=== PATIENT | female | born 1940 | race Caucasian/White ===

== ENCOUNTER → 2017-08-24 | Outpatient (REF) | payer MEDICARE, OTHER ==
[2017-08-24 14:45] LABS: REASON FOR REVIEW COMPREHENSIVE REVIEW
== END ==
LOC: M LAB REF 14:13
PROVIDERS: ATTEND Internal Medicine Medical Oncology
DX: D46.9 Myelodysplastic syndrome, unspecified (principal)

== ENCOUNTER → 2020-03-04 | Outpatient (CLI) | payer MEDICARE ==
[~2020-03-04] MED LIST: ALEN70TA74 PO; ASPI81TA85 PO; BUSP10TA PO; HYDR500C3 PO; LABE10TAB PO; TRIA37.5 PO
--- NOTE | 2020-03-05 10:16 | REP ---
PET/CT: HISTORY: Lung nodule. Nonspecific abnormal finding of the lung field. COMPARISONS: Comparison CT study chest abdomen pelvis January 29, 2020. TECHNIQUE: 50 minutes following the intravenous injection of a 8.92 mCi dose of F-18 FDG, three-dimensional PET scintigraphy is acquired from the skull base to the proximal thighs. Triplanar noncontrast CT scanning is acquired through the same anatomic range for attenuation correction, and image registration with scan parameters optimized to minimize radiation exposure to the patient. PET scintigraphy and CT datasets were fused and displayed on a workstation with multiplanar and projection display capability. PET/CT FINDINGS: The 1.4 cm nodule in the right upper lobe is quite hypermetabolic, maximum standard uptake value 9.48. No other abnormal hypermetabolic uptake is seen in the right lung. No abnormal pleural uptake is appreciated associated with the right pleural effusion. The spiculated left upper lobe nodule which measures 2.0 cm, has borderline of avidity. Maximum standard uptake value is 2.40. This has suspicious morphology as well. No other abnormal hypermetabolic uptake is seen in the left chest. There is another nodule visible in the left upper lobe more inferiorly measuring 13 mm in greatest diameter. This is less than completely solid morphologically. Maximum standard uptake value here is 0.90. This is not hypermetabolic. There is an area of atelectasis in the right middle lobe region without suspicious uptake. No abnormal hypermetabolic uptake is seen in the abdomen and pelvis. IMPRESSION: Hypermetabolic uptake is noted in a suspicious nodule in the right upper lobe. Two nodules in the left upper lobe show borderline and non-hypermetabolic uptake respectively. No other abnormal hypermetabolic uptake is seen. Electronically Signed by Juventino Elliott MD 03/05/2020 05:11 P
== END ==
LOC: M PLARAD 13:27
PROVIDERS: ATTEND Internal Medicine Pulmonary Disease
DX: R91.1 Solitary pulmonary nodule (principal)
CPT/HCPCS: 78815; A9552

== ENCOUNTER → 2020-03-11 | Outpatient (CLI) | payer MEDICARE ==
[2020-03-11 10:43] VITALS: BP 176/74
--- NOTE | 2020-03-11 14:41 | REP ---
REASON: Asses pleural fluid for possible evacuation. Ultrasonic evaluation of the right pleural space shows no abnormal fluid. Electronically Signed by Jonnathan Palumbo DO 03/11/2020 05:27 P
== END ==
LOC: M IRPRO 10:25
PROVIDERS: ATTEND Internal Medicine Pulmonary Disease
DX: J90 Pleural effusion, not elsewhere classified (principal)

== ENCOUNTER → 2020-04-17 | Outpatient (CLI) | payer MEDICARE ==
[~2020-04-17] MED LIST changes: +ALBU8.5H; -ASPI81TA85 PO; +ASPI81TA86 PO
--- NOTE | 2020-06-06 11:14 | REP ---
CT CHEST WITHOUT CONTRAST HISTORY: Other nonspecific abnormal finding of lung field. This report was delayed due to a protracted network disruption experienced by this facility. COMPARISON: PET CT images are from 03/04/2020. [facility] chest CT images from 01/29/2020. CT FINDINGS: There is a small right pleural effusion and a small pericardial effusion in this patient with cardiomegaly. These findings are unchanged from 01/29/2020. Extensive vascular calcification is noted. There is no apparent mediastinal mass or adenopathy. There is lobar atelectasis nearly complete in the right middle lobe. This is more pronounced than on the prior study. There are some air bronchograms, but no endobronchial lesion is seen. There is a 2.9 cm spiculated lesion in the left upper lobe, which is larger than on the prior study. There is a 1.4 cm somewhat spiculated noncalcified pulmonary nodule in the right upper lobe, which is unchanged from the 01/29/2020 CT study. There is a predominantly solid spiculated lesion in the posterior aspect of the left upper lobe. This measures 1.4 cm in greatest diameter. It is felt to be unchanged from the most recent prior CT study of 01/29/2020 as well. There is a small 5 mm pulmonary nodule in the left lower lobe posteriorly unchanged. Emphysematous changes and bullae are noted in the upper lobes bilaterally. No bony destructive lesion is appreciated. No adrenal lesion is observed. IMPRESSION: Spiculated nodules bilaterally in the upper lobes. There is a left lower lobe spiculated nodule as well. Small right pleural effusion and pericardial effusions are again noted. MTDD
== END ==
LOC: M RAD 11:47
PROVIDERS: ATTEND Internal Medicine Pulmonary Disease
DX: R91.8 Other nonspecific abnormal finding of lung field (principal)

== ENCOUNTER → 2020-04-28 | Outpatient (REF) | payer MEDICARE ==
[2020-05-28 14:16] LABS: BASO % 0.3 % (0.0-1.0); EOS # 0.1 10^3/uL (0.0-0.5); EOS % 0.8 % (0.0-3.0); HEMATOCRIT 46.4 % (36.0-47.0); HEMOGLOBIN 15.3 g/dl (12.0-15.5); INR 1.07; LYMPH # 0.6 10^3/uL (1.5-5.0); LYMPH % 7.3 % (24.0-44.0); MEAN CORPUSCULAR HEMOGLOBIN 36.3 pg (27.0-33.0); MEAN CORPUSCULAR VOLUME 110.2 fl (80.0-96.0); MONO # 0.6 10^3/uL (0.0-0.8); MONO % 7.2 % (0.0-5.0); NEUTROPHILS # 6.5 10^3/uL (1.5-8.5); NEUTROPHILS % 83.3 % (36.0-66.0); PLATELET COUNT, AUTOMATED 480 10^3/uL (150-450); PROTHROMBIN TIME 14.2 SECONDS (11.8-14.0); RED BLOOD COUNT 4.21 10^6/uL (4.00-5.40); WHITE BLOOD COUNT 7.8 10^3/uL (4.0-10.0)
[2020-05-28 14:17] LABS: PARTIAL THROMBOPLASTIN TIME 42.3 SECONDS (25.0-38.4)
[2020-06-10 11:21] LABS: BLOOD UREA NITROGEN 24 MG/DL (7-18); CALCIUM LEVEL 9.4 MG/DL (8.8-10.2); CARBON DIOXIDE LEVEL 31 MEQ/L (21-32); CHLORIDE LEVEL 105 MEQ/L (98-107); GLOMERULAR FILTRATION RATE > 60.0 (>32); GLUCOSE, FASTING 107 MG/DL (70-100); POTASSIUM SERUM 5.2 MEQ/L (3.5-5.1); SODIUM LEVEL 143 MEQ/L (136-145)
== END ==
LOC: M LAB REF 07:44
PROVIDERS: ATTEND Internal Medicine Pulmonary Disease
DX: J90 Pleural effusion, not elsewhere classified (principal); R79.1 Abnormal coagulation profile

== ENCOUNTER → 2020-04-28 | Outpatient (CLI) | payer MEDICARE | LOC: M LABSMTC 09:40 | PROVIDERS: ATTEND Anesthesiology | DX: Z01.812 Encounter for preprocedural laboratory examination (principal); Z20.828 Contact with and (suspected) exposure to other viral communicable diseases | CPT/HCPCS: C9803; U0002 ==

== ENCOUNTER → 2020-05-13 | Outpatient (CLI) | payer MEDICARE | LOC: M ONCR 14:21 | PROVIDERS: ATTEND General Practice | DX: C34.12 Malignant neoplasm of upper lobe, left bronchus or lung (principal); C34.11 Malignant neoplasm of upper lobe, right bronchus or lung; J44.9 Chronic obstructive pulmonary disease, unspecified; D47.3 Essential (hemorrhagic) thrombocythemia; J90 Pleural effusion, not elsewhere classified; F41.9 Anxiety disorder, unspecified; K21.9 Gastro-esophageal reflux disease without esophagitis; Z87.891 Personal history of nicotine dependence; Z79.51 Long term (current) use of inhaled steroids; Z79.82 Long term (current) use of aspirin; Z79.899 Other long term (current) drug therapy | CPT/HCPCS: 88173; G0463 ==

== ENCOUNTER 2020-07-10 13:47 | Outpatient (RCR) | payer MEDICARE | END 2020-07-19 | LOC: M ONCR 13:47 | PROVIDERS: ATTEND General Practice | DX: C34.12 Malignant neoplasm of upper lobe, left bronchus or lung (principal); C34.11 Malignant neoplasm of upper lobe, right bronchus or lung ==

== ENCOUNTER 2020-08-01 12:53 | Outpatient (RCR) | payer MEDICARE | END 2020-08-18 | LOC: M ONCR 12:53 | PROVIDERS: ATTEND General Practice | DX: C34.12 Malignant neoplasm of upper lobe, left bronchus or lung (principal) ==

== ENCOUNTER → 2020-10-20 | Outpatient (CLI) | payer MEDICARE, OTHER ==
[~2020-10-20] MED LIST changes: -ALEN70TA74 PO; +ALEN70TA82 PO; +ASPI81TA26 PO; +ATIV1TAB10 PO; +ISOVUE-370 76% 100ML VIAL As Ordered ONE; +LABE100T4 PO; -LABE10TAB PO; +SERT25TA85 PO; +TAGR80TA PO; +TOPR50TA PO
--- NOTE | 2020-10-20 13:33 | REP ---
INDICATION: LUNG CA. COMPARISON: 04/17/2020. TECHNIQUE: CT chest performed following the intravenous administration of 100 cc of Isovue 370. Sagittal and coronal reconstruction images are performed. FINDINGS: Lungs: Once again there are diffuse moderate emphysematous and fibrotic changes bilaterally. Superiorly in the right upper lobe there is an oval nodule with somewhat ill-defined margins which has decreased in size compared to the prior study, currently measuring about 9 x 7 mm, previously 14 x 10 mm. The previously noted right middle lobe consolidation has almost completely resolved. In the inferior right middle lobe there is a 4 mm nodular density. Posteriorly and inferiorly in the right lower lobe there are patchy parenchymal opacities peripherally likely representing fibro atelectasis. Superiorly in the left upper lobe a spiculated mass has slightly increased in size. It is slightly more bulky, increasing in transverse dimension by about 5 mm and cranial caudally about 3 mm. There are also increased interstitial opacities extending posterior to it. More inferiorly in the posterior left upper lobe an oval ill-defined spiculated lesion has a maximum diameter of 1.4 cm unchanged. Posterior the left lower lobe a 5 mm oval nodular opacity is stable. No new nodules are seen. Mediastinum: No adenopathy. Janet: No adenopathy. Axilla: No adenopathy. Pleura: No effusion. Previously noted right pleural effusion has resolved. Heart: Mildly enlarged. Thoracic aorta: No aneurysm or dissection. Upper abdominal structures: The thickened left adrenal gland is unchanged. The patient has had a prior cholecystectomy. There are colonic diverticula noted. There is renal cortical atrophy. Visualized osseous structures: There are degenerative changes of the spine without compression deformity. IMPRESSION: The previously noted right upper lobe nodule has decreased in size. Right middle lobe consolidation has almost completely resolved. There is a 4 mm nodular density seen in the right middle lobe. The right pleural effusion has resolved. The spiculated mass in the left upper lobe has slightly increased in size since the prior study. Another ill-defined spiculated lesion in the left upper lobe remains stable. A 5 mm nodular density in the left lower lobe remains stable. <Electronically signed by Scottie Diehl > 10/20/20 [id number]
== END ==
LOC: M RAD 11:01
PROVIDERS: ATTEND General Practice
DX: C34.12 Malignant neoplasm of upper lobe, left bronchus or lung (principal)
CPT/HCPCS: 71260; Q9967

== ENCOUNTER → 2020-10-29 | Outpatient (CLI) | payer MEDICARE, OTHER ==
[~2020-10-29] MED LIST changes: -ISOVUE-370 76% 100ML VIAL As Ordered ONE
--- NOTE | 2020-10-29 17:17 | RADONC ---
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 She completed SBRT to the biopsy proven RUL and CHRISTOPH lesions 08/01/20. She has been continued on Tagrisso with Dr. Galvan in the adjuvant setting. Diagnosis/Treatment History Oncologic History History of COPD, essential thrombocytosis. January 2020 She underwent workup for a right pleural effusion which was sampled but subsequently spontaneously resolved. On CT chest RUL and CHRISTOPH spiculated lung lesions were discovered. She underwent PET-CT 03/04/20 which showed avidity in these nodules in the absence of distant disease. She was referred for bronchoscopy and biopsy on 04/30/20 (Dr. Waller) revealed NSCLC. She was then referred for consideration of SBRT to these lesions. Her treatment was delayed, as she suffered an FL in May 2020, this led to a 1 month hospitalization in [place] wherein a recurrent right pleural effusion was noted and sampled this time harboring malignant cells. She was discharged and on planning CT for SBRT on 07/10/20 the effusion was again noted to have spontaneously resolved without treatment. She completed SBRT 60 Gy in 5 fractions to both the RUL and CHRISTOPH simultaneously on 08/01/20. She started Tagrisso August 2020 in the adjuvant setting on the basis of the positive pleural cytology harboring EGFR mutation (despite the spontaneous resolution of the effusion in question) but had to discontinue it due to refractory diarrhea. She may resume again soon with dose reduction. Recent data: 10/20/20 CT chest Reduction in size of the RUL lesion now 1.0 x 0.7 cm (1.2 x 1.0 on 07/10/20) Reduction in size of the CHRISTOPH lesion 1.4 x 2.6 cm (1.7 x 2.9 on 07/10/20) Interval History Nguyễn lost her recently to COVID, she and her family are mourning. She has ample social support, her daughter is staying with her. She feels physically very well. Stable LAI, no worse since treatment. Her diarrhea has resolved since stopping the Tagrisso. She has no cough or chest pain. She has excellent appetite and has gained 5 lbs since we last saw her. Energy levels good. Current Therapy Tagrisso from August 2020 on hold due to Grade 3 diarrhea Stage NSCLC synchronous stage I versus [id number] (pleural effusion, which has come and gone spontaneously, mysteriously) Social History: Former smoker 50 pk years quit ~1999 Does not drink Allergies / Meds Allergies: Coded Allergies: No Known Allergies (Unverified , 07/12/18) Home Meds Active Scripts Hydroxyurea (Hydroxyurea) 500 Mg Cap, 500 MG PO QPM for 30 Days, #30 CAP 5 Refills Prov:RAQUEL GALVAN MD 09/29/20 Osimertinib Mesylate (Tagrisso) 80 Mg Tablet, 1 TAB PO DAILY for 30 Days, #30 TAB 5 Refills Prov:RAQUEL GALVAN MD 09/05/20 Reported Medications Lorazepam (Ativan) 0.5 Mg Tablet, 0.5 MG PO BIDP PRN for anxiety MDD 2 Tablet(s) for 30 Days, #60 TAB 09/04/20 Metoprolol Succinate (Toprol Xl) 50 Mg Tab.er.24h, 50 MG PO BID, TAB 09/04/20 Sertraline Hcl (Sertraline HCl) 25 Mg Tablet, 25 MG PO DAILY for 30 Days, #30 TAB 09/04/20 Aspirin (Aspirin EC) 81 Mg Tablet.dr, 1 TAB PO DAILY for pain for 30 Days, #30 TAB 09/04/20 Albuterol Sulfate (Albuterol Sulfate Hfa) 8.5 Gm Hfa.aer.ad 05/13/20 Review of Systems Review of Systems Constitutional: Denies: Chills, Fever, Malaise, Weakness, Fatigue, Weight Loss Eyes: Denies: Pain, Vision change HEENT: Denies: Head Aches Skin: Denies: Rash Pulmonary: Reports: Dyspnea; Denies: Cough, Pleuritic Chest Pain Cardiovascular: Denies: Chest Pain, Palpitations Gastrointestinal: Denies: Nausea, Vomiting, Abdominal Pain Genitourinary: Denies: Dysuria, Frequency Hematologic: Denies: Bruising, Bleeding Excessively Endocrine: Denies: Polydipsia, Cold Intolerance Musculoskeletal: Denies: Neck pain, Back pain Neurological: Denies: Weakness, Numbness, Incoordination Psych: Reports: Mood Normal Physical Examination Vital Signs Ht 64" Wt 99 lbs T 97.8 P 55 RR 18 BP 139/58 O2 99% Pain 0 Fatigue 2 General Exam: Positive: Alert, Cooperative; Negative: No Acute Distress Eye Exam: Positive: PERRLA, EOMI ENT EXAM: Positive: Atraumatic, Mucous membr. moist/pink Neck Exam: Positive: Supple; Negative: Lymphadenopathy Chest Exam: Positive: Clear to auscultation, Normal air movement; Negative: Rales, Wheezing Heart Exam: Positive: Rate Normal, Regular Rhythm Abdomen Exam: Positive: Normal bowel sounds, Soft; Negative: Tenderness Extremity Exam: Negative: Edema Skin Exam: Positive: Nl turgor and temperature Neuro Exam: Positive: Normal Gait, Normal Speech, Cranial Nerves 3-12 NL Psych Exam: Positive: Mental status NL Diagnostic and Laboratory Diagnostic Review Radiologic images, relevant labs and pathology reports were personally reviewed and discussed with Ms. Engle. Assessment and Plan Impression Assessment Ms. Engle is a 80 year old female smoker seen for a followup visit today at the department of radiation oncology for a history of NSCLC [id number] (malignant pleural effusion) stage ISABEL initially thought synchronous primaries. She completed SBRT to the biopsy proven RUL and CHRISTOPH lesions 08/01/20. She has been continued on Tagrisso with Dr. Galvan in the adjuvant setting. She has recently lost her , condolences given. With respect to her current burden of disease in the chest both treated lesions have responded well to SBRT, compared to our treatment planning CT (the immediate prior study) from 07/10/20. With respect to the malignant effusion which was detected on her admission to [facility] in May 2020, it was resolved on our planning CTs and there is no sign now of recrudescence. I shared with the patient that this effusion which has now apparently resolved without anticancer intervention on 2 occasions (the first in January 2020 is what prompted her initial workup) is entirely mysterious, and honestly, should not be cause for immediate alarm now that there is a good response in the known lesions and no signs of pro progression in the chest. I think that it would be excellent if she were able to resume Tagrisso at a lower dose, hopefully to mitigate diarrhea as this is a very effective medicat ion and there is data showing improved outcomes using EGFR targetting drugs in the adjuvant setting following resection of locally advanced NSCLC. I defer to medical oncology on this point. I do think that ongoing surveillance of the chest is crucial independent of continuing Tagrisso, so I will order a [address] chest. I defer on the utility of subdiaphragmatic or functional imaging to medical oncology at this time. I will see her again in 3 months. I encouraged her to continue to gain weight as she is able by increasing protein calorie intake and strive for a BMI > 18 (~110lbs). Performance Status ECOG [address] chest in 3 months Seeing medical oncology in the coming 1-2 weeks Ms. Engle was encouraged to call with questions or concerns in the interim period. Total time of (36) minutes was spent preparing for the visit (4), obtaining HPI (5), examining the patient (3), reviewing diagnostic tests (7), discussing management options (4), coordinating care (1), and writing this note (12). TERESO GOMEZ MD Oct 29, 2020 17:17
== END ==
LOC: M ONCR 13:48
PROVIDERS: ATTEND General Practice
DX: C34.12 Malignant neoplasm of upper lobe, left bronchus or lung (principal); Z87.891 Personal history of nicotine dependence

== ENCOUNTER → 2021-01-21 | Outpatient (CLI) | payer MEDICARE, OTHER ==
[~2021-01-21] MED LIST changes: +COVI100V IM; +FURO40TA2 PO; +ISOVUE-370 76% 100ML VIAL As Ordered ONE
--- NOTE | 2021-01-21 14:01 | REP ---
INDICATION: LUNG CA. COMPARISON: Comparison chest CT study October 20, 2020 and April 17, 2020.. TECHNIQUE: Helical scanning is acquired following the intravenous injection of 75 mL of Isovue 370. 3 mm axial images were reformatted. Coronal and sagittal MPR and coronal MIP images are included. FINDINGS: Preliminary digital massage coordinator radiograph demonstrates bilateral upper lobe fiducial markers in place. There is good opacification of the pulmonary arterial tree. There is no CT evidence of pulmonary embolus. No aortic aneurysm or dissection is seen. Central pulmonary arteries remain prominent consistent with pulmonary arterial hypertension. No hilar or mediastinal mass or adenopathy is seen. The visualized upper abdominal structures are unremarkable. There is no evidence of pleural or pericardial effusion. On lung window settings, there are advanced emphysematous changes in the upper lobes. There are areas of subpleural fibrosis in the lower lobes bilaterally. Today's study demonstrates a 7 mm nodule adjacent to the 2 fiducial markings in the right apex. This nodule is decreased in size from April 17, 2020 and somewhat less prominent than on the October 20, 2020 study when it measured 9 mm. There is a new area of apical fibrosis on the right. A 2nd small non solid nodular density is seen in the right upper lobe just inferior to the 7 mm nodule. This is unchanged. The previously noted 5 mm nodule in the right middle lobe is again seen to be stable. In the left lung apex, there is a bandlike area of spiculated nodular density measuring is roughly 2.6 x 1.5 cm. This is essentially unchanged from the most recent prior study of October 20, 2020. Caudal to this there is a 2nd spiculated nodule in the left upper lobe measuring 12 mm in greatest diameter today. This is felt to be unchanged from the most recent prior study. There is a small nodular density in the left lower lobe posteriorly 5 mm in greatest diameter. This appears unchanged in overall size from April 17, 2020. No new pulmonary nodule is appreciated. IMPRESSION: Multiple bilateral spiculated pulmonary nodules. A nodular density in the right upper lobe has decreased in size from April 17, 2020 and has decreased somewhat from the more recent study of October 20, 2020. Other spiculated and subcentimeter nodules are felt to be unchanged. Advanced COPD. <Electronically signed by Messi Elliott > 01/21/21 [id number]
== END ==
LOC: M RAD 12:44
PROVIDERS: ATTEND General Practice
DX: C34.12 Malignant neoplasm of upper lobe, left bronchus or lung (principal); C34.11 Malignant neoplasm of upper lobe, right bronchus or lung
CPT/HCPCS: 71260; Q9967

== ENCOUNTER → 2021-01-28 | Outpatient (CLI) | payer MEDICARE, OTHER ==
[~2021-01-28] MED LIST changes: -ISOVUE-370 76% 100ML VIAL As Ordered ONE; +NITR-67 PO
[2021-01-28 13:38] LABS: APPEARANCE, URINE CLOUDY (CLEAR); BACTERIA, URINE AUTO 2+ (NEGATIVE); BILIRUBIN, URINE AUTO NEGATIVE (NEGATIVE); BLOOD, URINE BLOOD NEGATIVE (NEGATIVE); COLOR, URINE YELLOW (YELLOW); GLUCOSE, URINE (UA) AUTO NEGATIVE (NEGATIVE); KETONE, URINE AUTO NEGATIVE (NEGATIVE); LEUKOCYTE ESTERASE, URINE AUTO 3+ (NEGATIVE); MUCUS, URINE SMALL (NEGATIVE); NITRITE, URINE AUTO POSITIVE (NEGATIVE); PROTEIN, URINE AUTO 2+ mg/dL (NEGATIVE); RBC, URINE AUTO 9 /HPF (0-3); SPECIFIC GRAVITY URINE AUTO 1.017 (1.002-1.035); SQUAMOUS EPITHELIAL CELL UR AU 0 /HPF (0-6); UROBILINOGEN, URINE AUTO 0.2 mg/dL (0.0-2.0); WBC, URINE AUTO TNTC /HPF (0-3)
--- NOTE | 2021-01-28 14:39 | RADONC ---
Radiation Oncology Hx/FUP Radiation Oncology Hx/FUP Date of Service: January 28, 2021 Pt Identifier Nguyễn Engle is a 80 year old female seen for a followup visit today at the department of radiation oncology for a history of NSCLC [id number] (malignant pleural effusion) stage ISABEL initially thought synchronous primaries. She completed SBRT to the biopsy proven RUL and CHRISTOPH lesions 08/01/20. She has been continued on Tagrisso in the adjuvant setting. Diagnosis/Treatment History Oncologic History History of COPD, essential thrombocytosis. January 2020 She underwent workup for a right pleural effusion which was sampled but subsequently spontaneously resolved. On CT chest RUL and CHRISTOPH spiculated lung lesions were discovered. She underwent PET-CT 03/04/20 which showed avidity in these nodules in the absence of distant disease. She was referred for bronchoscopy and biopsy on 04/30/20 (Dr. Waller) revealed NSCLC. She was then referred for consideration of SBRT to these lesions. Her treatment was delayed, as she suffered an NC in May 2020, this led to a 1 month hospitalization in [place] wherein a recurrent right pleural effusion was noted and sampled this time harboring malignant cells. She was discharged and on planning CT for SBRT on 07/10/20 the effusion was again noted to have spontaneously resolved without treatment. She completed SBRT 60 Gy in 5 fractions to both the RUL and CHRISTOPH simultaneously on 08/01/20. She started Tagrisso August 2020 in the adjuvant setting on the basis of the positive pleural cytology harboring EGFR mutation (despite the spontaneous resolution of the effusion in question) but had to discontinue it due to refractory diarrhea. This was resumed again at a lower dose. 10/29/20 CT chest showing response in the RUL lesion, CHRISTOPH [id number] compared to prior. 01/21/21 CT showing response in RUL and CHRISTOPH lesion, now smaller with surrounding post-treatment changes. Interval History Nguyễn reports she is breathing well and exercising (walking) regularly. She has been surprised at the improvement in her LAI and SOB with the exercise. She has no CP, or cough at present. She is still having diarrhea from the Tagrisso. She is unsure if she wants to continue this because of the diarrhea. She notes since yesterday dysuria and increased frequency consistent with prior UTI. She has good appetite but is struggling to gain weight. Sees medical oncology next week. Current Therapy Tagrisso Stage NSCLC synchronous stage I versus [id number] (pleural effusion, which has come and gone spontaneously, mysteriously) Social History: Former smoker 50 pk years quit ~1999 Does not drink Allergies / Meds Allergies: Coded Allergies: No Known Allergies (Unverified , 07/12/18) Home Meds Active Scripts Nitrofurantoin Macrocrystal (Nitrofurantoin) 100 Mg Capsule, 100 MG PO BID for 7 Days, #14 CAP Prov:TERESO GOMEZ MD 01/28/21 Osimertinib Mesylate (Tagrisso) 80 Mg Tablet, 1 TAB PO DAILY for 30 Days, #30 TAB 5 Refills Prov:RICHARD FATIMA MD 11/05/20 Reported Medications Covid-19 Vacc,Mrna(Moderna)/Pf (Moderna Covid19 Vacc(Unapprov)) 100 Mcg/0.5 Ml Vial, 100 MCG IM, VIAL 12/31/20 Furosemide (Furosemide) 40 Mg Tablet, 40 MG PO DAILY 11/05/20 Lorazepam (Ativan) 0.5 Mg Tablet, 0.5 MG PO BIDP PRN for anxiety MDD 2 Tablet(s) for 30 Days, #60 TAB 09/04/20 Metoprolol Succinate (Toprol Xl) 50 Mg Tab.er.24h, 50 MG PO BID, TAB 09/04/20 Sertraline Hcl (Sertraline HCl) 25 Mg Tablet, 25 MG PO DAILY for 30 Days, #30 TAB 09/04/20 Aspirin (Aspirin EC) 81 Mg Tablet.dr, 1 TAB PO DAILY for pain for 30 Days, #30 TAB 09/04/20 Review of Systems Review of Systems Constitutional: Denies: Fever, Malaise, Fatigue Eyes: Denies: Pain HEENT: Denies: Head Aches Skin: Denies: Rash Pulmonary: Reports: Dyspnea; Denies: Cough Cardiovascular: Denies: Chest Pain Gastrointestinal: Reports: Diarrhea; Denies: Nausea, Abdominal Pain Genitourinary: Reports: Dysuria, Frequency; Denies: Hematuria Hematologic: Denies: Bruising Musculoskeletal: Denies: Neck pain, Back pain, Midthoracic pain Neurological: Denies: Weakness, Numbness Psych: Reports: Mood Normal Physical Examination Vital Signs Wt 101 T 96.8 P 53 RR 18 BP 169/74 O2 95% Pain 0 Fatigue 2 General Exam: Positive: Alert, Cooperative, No Acute Distress Eye Exam: Positive: PERRLA, EOMI ENT EXAM: Positive: Atraumatic Neck Exam: Positive: Supple Chest Exam: Positive: Clear to auscultation, Normal air movement; Negative: Wheezing Heart Exam: Positive: Rate Normal, Regular Rhythm Abdomen Exam: Positive: Soft; Negative: Tenderness, Other (No CVA tenderness BL) Extremity Exam: Negative: Edema Skin Exam: Positive: Nl turgor and temperature Neuro Exam: Positive: Normal Gait, Normal Speech, Cranial Nerves 3-12 NL Psych Exam: Positive: Mental status NL Diagnostic and Laboratory Diagnostic Review Radiologic images, relevant labs and pathology reports were personally reviewed and discussed with Ms. Engle. Laboratory Tests 01/28/21 11:50: Urine Color YELLOW, Urine Appearance CLOUDYH, Urine pH 6.0, Urine Specific [place] 1.017, Urine Protein 2+H, Urine Glucose (Auto)(UA) NEGATIVE, Urine Ketones (Auto) NEGATIVE, Urine Blood NEGATIVE, Urine Nitrite POSITIVE, Urine Bilirubin NEGATIVE, Urine Urobilinogen 0.2, Urine Leukocyte Esterase (Auto) 3+H, Urine WBC (Auto) TNTCH, Urine RBC (Auto) 9H, Urine Hyaline Casts (Auto) 0, Urine Bacteria (Auto) 2+H, Urine Squamous Epithelial Cells 0, Urine Mucus (Auto) SMALL, Urine Sperm (Auto) Assessment and Plan Impression Assessment Ms. Engle is a 80 year old female with a history of NSCLC [id number] (malignant pleural effusion) stage ISABEL initially thought synchronous primaries. She completed SBRT to the biopsy proven RUL and CHRISTOPH lesions 08/01/20. She has been continued on Tagrisso in the adjuvant setting. I am please with the regression of both the RUL and CHRISTOPH lesions s/p SBRT. The other subcentimeter pulmonary nodules scattered throughout the BL lungs are stable in size. There is no recrudescent pleural fluid. Overall she has no need of additional SBRT at this time. I will obtain another CT chest in 3 months for continued surveillance. She is seeing medical oncology in the next week and may decide to stop Tagrisso due to the diarrhea. I think this is reasonable given her relative frailty, although she is subjectively reporting more energy and less LAI at this visit than last. She has convincing symptoms and a UA consistent with UTI today. I will prescribe macrobid 100 mg BID for 7 days, which has worked in the past for her. She does not tolerate AZO tabs well, but the antibiotic alone should resolve her dysuria. If the culture data requires a change in antibiotic I will call her to effect this. Will see her back in [address] Performance Status ECOG [address] chest in 3 months Macrobid for UTI Will follow up culture Follow up in 3 months Ms. Engle was encouraged to call with questions or concerns in the interim period. Billing Statement Total time of [33] minutes was spent preparing for the visit [2], obtaining HPI [6], examining the patient [4], reviewing diagnostic tests [3], discussing management options [5], coordinating care [4], and writing this note [9]. TERESO GOMEZ MD January 28, 2021 14:39
== END ==
LOC: M ONCR 11:16
PROVIDERS: ATTEND General Practice
DX: C34.11 Malignant neoplasm of upper lobe, right bronchus or lung (principal); C34.12 Malignant neoplasm of upper lobe, left bronchus or lung; Z79.899 Other long term (current) drug therapy
CPT/HCPCS: 81001; 87088; 87186; G0463

== ENCOUNTER → 2021-04-23 | Outpatient (CLI) | payer MEDICARE, OTHER ==
[~2021-04-23] MED LIST changes: +ISOVUE-370 76% 100ML VIAL As Ordered ONE
--- NOTE | 2021-04-23 13:10 | REP ---
INDICATION: LUNG CA. COMPARISON: None. TECHNIQUE: Imaging protocol: Computed tomography of the chest with IV contrast. Contiguous 3 mm thick axial projection images were obtained through the chest. 2D sagittal and coronal reconstructions were performed. Radiation optimization: All CT scans at this facility use at least one of these dose optimization techniques: automated exposure control; mA and/or kV adjustment per patient size (includes targeted exams where dose is matched to clinical indication); or iterative reconstruction. Contrast material: ISOVUE 370; Contrast volume: 75 ml; Contrast route: INTRAVENOUS (IV). FINDINGS: Lower neck: The thyroid gland is normal. There is no supraclavicular lymphadenopathy. Mediastinum: There is a right supraclavicular lymph node measuring 16 x 13 mm (was 13 x 13 mm). There is a prominent superior pericardial recess. Heart/thoracic aorta/pulmonary arterial tree: Heart is enlarged. There is a small pericardial effusion. There is calcific vascular disease of the thoracic aorta and coronary arteries. There is no thoracic aortic aneurysm or aortic dissection. There is no evidence of pulmonary emboli. There is enlargement of the main pulmonary arterial segments, consistent with pulmonary arterial hypertension. Upper abdomen: There is calcific vascular disease of the abdominal aorta. The origins of the SMA and left renal artery are heavily calcified. The gallbladder surgically absent. Thoracic esophagus: Normal. Chest wall and axilla: The breast and soft tissues of the chest wall appear normal. There is no axillary lymphadenopathy. There is mild levoscoliosis of the thoracic spine. Lung parenchyma: There is severe upper lobe predominant centrilobular emphysema. There is pleuroparenchymal scarring in both lung apices. There is a soft tissue density mass in the apex of left lung measuring 3.4 x 2.4 x 1.9 cm (was 2.6 x 1.8 x 1.5 cm). There are fiducial markers adjacent to the mass. There are fiducial markers in the right lung apex, adjacent to a 5 x 4 mm soft tissue density nodule (was 7 x 5 mm). There is a 14 x 12 x 9 mm soft tissue density nodule with a spiculated margin in the posterior segment of the upper lobe of the left lung (was 14 x 11 x 9 mm). There is subpleural reticulation with superimposed honeycombing in the basilar segments of both lower lobes. IMPRESSION: 1. There has been interval increase in size of a soft tissue density mass in the apex of the left lung worrisome for bronchogenic carcinoma. There are fiducial markers adjacent to the mass. 2. There is a stable/smaller soft tissue density nodule in the right lung apex adjacent to fiducial markers. 3. There is a stable soft tissue nodule in the posterior segment of the upper lobe of the left lung. 4. Other soft tissue nodule seen previously are unchanged. 5. There is upper lobe predominant emphysema and basilar predominant interstitial fibrosis. 6. Other findings as noted, not significantly changed. RECOMMENDATION: PET-CT. <Electronically signed by Phu Munoz > 04/23/21 [id number]
== END ==
LOC: M RAD 11:07 → EEVIPCON 11:30
PROVIDERS: ATTEND General Practice
DX: C34.11 Malignant neoplasm of upper lobe, right bronchus or lung (principal)
CPT/HCPCS: 71260; Q9967

== ENCOUNTER → 2021-04-28 | Outpatient (CLI) | payer MEDICARE, OTHER ==
[~2021-04-28] MED LIST changes: -ISOVUE-370 76% 100ML VIAL As Ordered ONE
--- NOTE | 2021-04-28 11:49 | RADONC ---
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 She completed SBRT to the biopsy proven RUL and CHRISTOPH lesions 08/01/20. She has been continued on Tagrisso in the adjuvant setting. Diagnosis/Treatment History Oncologic History istory of COPD, essential thrombocytosis. January 2020 She underwent workup for a right pleural effusion which was sampled but subsequently spontaneously resolved. On CT chest RUL and CHRISTOPH spiculated lung lesions were discovered. She underwent PET-CT 03/04/20 which showed avidity in these nodules in the absence of distant disease. She was referred for bronchoscopy and biopsy on 04/30/20 (Dr. Waller) revealed NSCLC. She was then referred for consideration of SBRT to these lesions. Her treatment was delayed, as she suffered an RI in May 2020, this led to a 1 month hospitalization in [place] wherein a recurrent right pleural effusion was noted and sampled this time harboring malignant cells. She was discharged and on planning CT for SBRT on 07/10/20 the effusion was again noted to have s pontaneously resolved without treatment. She completed SBRT 60 Gy in 5 fractions to both the RUL and CHRISTOPH simultaneously on 08/01/20. She started Tagrisso August 2020 in the adjuvant setting on the basis of the positive pleural cytology harboring EGFR mutation (despite the spontaneous resolution of the effusion in question) but had to discontinue it due to refractory diarrhea. This was resumed again at a lower dose. 10/29/20 CT chest showing response in the RUL lesion, CHRISTOPH [id number] compared to prior. 01/21/21 CT showing response in RUL and CHRISTOPH lesion, now smaller with surrounding post-treatment changes. 04/23/21 CT showing continued regression of the RUL lesion now barely perceptible, however the CHRISTOPH lesion has clearly grown to 3.7 cm x 2.5 cm. Stable nodule in the posterior segment of CHRISTOPH. Stable mediastinal adenopathy. Interval History Nguyễn reports stable breathing. Has been losing weight however, has diarrhea from the tagrisso ongoing. Has preserved appetite and per her daughter eats very well. No pain. She reports she has a left inguinal hernia and repair is pending oncologic clearance. Current Therapy Tagrisso Stage NSCLC synchronous stage I versus [id number] (pleural effusion, which has come and gone spontaneously, mysteriously) Social History: Former smoker 50 pk years quit ~1999 Does not drink Allergies / Meds Allergies: Coded Allergies: No Known Allergies (Unverified , 07/12/18) Home Meds Active Scripts Nitrofurantoin Macrocrystal (Nitrofurantoin) 100 Mg Capsule, 100 MG PO BID for 7 Days, #14 CAP Prov:TERESO GOMEZ MD 01/28/21 Osimertinib Mesylate (Tagrisso) 80 Mg Tablet, 1 TAB PO DAILY for 30 Days, #30 TAB 5 Refills Prov:RICHARD FATIMA MD 11/05/20 Reported Medications Covid-19 Vacc,Mrna(Moderna)/Pf (Moderna Covid19 Vacc(Unapprov)) 100 Mcg/0.5 Ml Vial, 100 MCG IM, VIAL 12/31/20 Furosemide (Furosemide) 40 Mg Tablet, 40 MG PO DAILY 11/05/20 Lorazepam (Ativan) 0.5 Mg Tablet, 0.5 MG PO BIDP PRN for anxiety MDD 2 Tablet(s) for 30 Days, #60 TAB 09/04/20 Metoprolol Succinate (Toprol Xl) 50 Mg Tab.er.24h, 50 MG PO BID, TAB 09/04/20 Sertraline Hcl (Sertraline HCl) 25 Mg Tablet, 25 MG PO DAILY for 30 Days, #30 TAB 09/04/20 Aspirin (Aspirin EC) 81 Mg Tablet.dr, 1 TAB PO DAILY for pain for 30 Days, #30 TAB 09/04/20 Review of Systems Review of Systems Constitutional: Reports: Fatigue, Weight Loss; Denies: Fever Eyes: Denies: Pain HEENT: Denies: Head Aches Skin: Denies: Rash Pulmonary: Denies: Dyspnea, Cough, Pleuritic Chest Pain Cardiovascular: Denies: Chest Pain, Palpitations, Edema Gastrointestinal: Reports: Diarrhea, Other Symptoms (Hernia ); Denies: Abdominal Pain Genitourinary: Reports: Dysuria, Frequency (Recent UTI) Hematologic: Denies: Bruising, Bleeding Excessively Musculoskeletal: Denies: Neck pain, Back pain Neurological: Denies: Weakness, Numbness Psych: Reports: Mood Normal Physical Examination Vital Signs Wt 94 lbs (from 101 on 01/28/21) T 96.4 P 62 RR 20 BP 155/82 O2 95% Pain 0 Fatigue 0 General Exam: Alert, Cooperative, No Acute Distress Eye Exam: PERRLA, EOMI ENT EXAM: Atraumatic Neck Exam: Supple; Negative: Lymphadenopathy Chest Exam: Clear to auscultation, Normal air movement; Negative: Wheezing Heart Exam: Rate Normal, Regular Rhythm Abdomen Exam: Soft, Hernia (Left non-tender inguinal hernia) Extremity Exam: Negative: Edema Skin Exam: Nl turgor and temperature Neuro Exam: Normal Gait, Normal Speech, Cranial Nerves 3-12 NL Psych Exam: Mental status NL Diagnostic and Laboratory Diagnostic Review Radiologic images, relevant labs and pathology reports were personally reviewed and discussed with Ms. Engle. Assessment and Plan Impression Assessment Ms. Engle is a 80 year old female wformer smoker seen for a followup visit today at the department of radiation oncology for a history of NSCLC [id number] (malignant pleural effusion) stage ISABEL initially thought synchronous primaries. She completed SBRT to the biopsy proven RUL and CHRISTOPH lesions 08/01/20. She has been continued on Tagrisso in the adjuvant setting. Nguyễn is feeling relatively well, she has no pain or decompensated pulmonary symptoms. She is losing weight, which may be partly from her diarrhea from tagrisso as well as cachexia from her active malignancy. She was encouraged to hydrate adequately in light of the current hot weather and her GI losses. She has a pending hernia repair. I think this could be done non-urgently in the coming weeks to months as her malignancy has been slow moving and indolent overall and thus these two problems could be managed in turn, together. With respect to her scan the CHRISTOPH has unequivocally grown which indicates it has failed the initial SBRT course. The RUL lesion, contrastingly has regressed completely. There is also a posterior segment CHRISTOPH lesion which is stable overall. I think a good next step would be to restage with a PET-CT and consider reirradiation of the CHRISTOPH lesion if there is no recrudescent or de-jazmin disease elsewhere. This can be done safely and effectively. She agreed to PET-CT. I will review her case with our group at tumor board. I do not think cytotoxic chemotherapy would be in her best interest given that she is relatively frail and so far this remains chest localized disease, and thus is a local problem until proven otherwise. I will call her once the PET-CT results are in and discuss next steps. She has a visit with medical oncology in the next few days as well, by then we should have a consensus. Performance Status ECOG 2 Plan PET-CT now Tumor board review Consideration of reirradiation of the CHRISTOPH lesion if there is no body-wide progression Will call with PET-CT results and discuss next steps OK for hernia repair from my standpoint recommended she discuss with medical oncology as well Ms. Engle was encouraged to call with questions or concerns in the interim period. Billing Statement Total time of [30] minutes was spent preparing for the visit [2], obtaining HPI [5], examining the patient [3], reviewing diagnostic tests [5], discussing manag ement options [6], coordinating care [2], and writing this note [7]. TERESO GOEMZ MD Apr 28, 2021 11:49
== END ==
LOC: M ONCR 10:47
PROVIDERS: ATTEND General Practice
DX: C34.12 Malignant neoplasm of upper lobe, left bronchus or lung (principal); D47.3 Essential (hemorrhagic) thrombocythemia; J44.9 Chronic obstructive pulmonary disease, unspecified; I25.2 Old myocardial infarction; Z79.82 Long term (current) use of aspirin; Z79.899 Other long term (current) drug therapy; Z87.891 Personal history of nicotine dependence

== ENCOUNTER → 2021-05-19 | Outpatient (CLI) | payer MEDICARE, OTHER ==
--- NOTE | 2021-05-19 18:44 | REP ---
INDICATION: RESTAGING LEFT UPPER LOBE LUNG CANCER C34.12. Non-small cell lung carcinoma right upper lobe and left upper lobe. Status post SBRT for both right upper lobe and left upper lobe lesions July of 2020. Subsequent CTs most recently showed regression to the right upper lobe and growth in the left upper lobe lesion. Now 3.4 cm. There is a stable 1.4 cm spiculated nodule in the posterior segment of the left upper lobe and there are stable mediastinal nodes. COMPARISON: Comparison CT study of the chest April 23, 2021. Comparison PET-CT March 04, 2020 TECHNIQUE: Fifty-four minutes following the intravenous injection of a 8.82 mCi dose of F-18 FDG, three-dimensional PET scintigraphy is acquired from the skull base to the proximal thighs. Triplanar noncontrast CT scanning is acquired through the same anatomic range for attenuation correction, and image registration with scan parameters optimized to minimize radiation exposure to the patient. PET scintigraphy and CT datasets were fused and displayed on a workstation with multiplanar and projection display capability. FINDINGS: Head and neck soft tissues remain unremarkable. The right upper lobe pulmonary nodule is no longer apparent. There are 2 metallic fiducial markers in the right apex. No abnormal hypermetabolic uptake is seen in the right lung apex. The enlarging left upper lobe shows mass low level, borderline FDG accumulation, maximum standard uptake value is 2.44 today, previously 2.40. It has enlarged in the interval since the March 04, 2020 PET-CT hour. The 2nd nodule in the left upper lobe posterior segment shows similar low-level borderline uptake, maximum standard uptake value in this nodule. This is more prominent than previous. 2.28 Today's PET scintigraphy demonstrates 2 new pro foci of hypermetabolic uptake 1 in the right subclavian region in a 1 cm lymph node, SUV 3.66 and the other in the superior most mediastinum just posterior to the medial clavicle head, SUV 3.22. No abnormal hypermetabolic uptake is seen in the abdomen or pelvis. No abnormal skeletal uptake is seen. There is again noted to be a small to moderate pericardial effusion but no observable pleural effusion is seen today. IMPRESSION: Low level borderline uptake in the 2 left upper lobe pulmonary nodules. Both of these appear somewhat more prominent today's PET-CT imaging. The visible uptake in the smaller left upper lobe nodule is a new finding. The right upper lobe nodules have regressed. There are however 2 small mildly hypermetabolic 1 cm lymph nodes in the superior mediastinum and right subclavian chain today. <Electronically signed by Messi Elliott > 05/19/21 [id number]
== END ==
LOC: M PLARAD 13:17
PROVIDERS: ATTEND General Practice
DX: C34.12 Malignant neoplasm of upper lobe, left bronchus or lung (principal)
CPT/HCPCS: 78815; A9552

== ENCOUNTER → 2021-08-27 | Outpatient (CLI) | payer MEDICARE, OTHER ==
[~2021-08-27] MED LIST changes: +ERLO100T PO; +HYDR500C PO; +ROSU20TA5; +[UNRECOGNIZED DRUG - CODE] PO
== END ==
LOC: M ONCR 14:39
PROVIDERS: ATTEND General Practice
DX: C34.12 Malignant neoplasm of upper lobe, left bronchus or lung (principal); J44.9 Chronic obstructive pulmonary disease, unspecified; Z92.3 Personal history of irradiation; Z79.899 Other long term (current) drug therapy

== ENCOUNTER → 2021-12-14 | Outpatient (CLI) | payer MEDICARE, OTHER | LOC: M PLARAD 11:42 | PROVIDERS: ATTEND Internal Medicine Medical Oncology | DX: C34.11 Malignant neoplasm of upper lobe, right bronchus or lung (principal) | CPT/HCPCS: 78815; A9552 ==

== ENCOUNTER → 2022-03-03 | Outpatient (CLI) | payer MEDICARE, OTHER | LOC: M ONCR 09:52 | PROVIDERS: ATTEND General Practice | DX: C34.12 Malignant neoplasm of upper lobe, left bronchus or lung (principal); C34.11 Malignant neoplasm of upper lobe, right bronchus or lung; I25.2 Old myocardial infarction; Z92.3 Personal history of irradiation; Z92.21 Personal history of antineoplastic chemotherapy; Z79.899 Other long term (current) drug therapy; Z87.891 Personal history of nicotine dependence; Z79.82 Long term (current) use of aspirin ==

== ENCOUNTER → 2022-04-26 | Outpatient (CLI) | payer MEDICARE, OTHER ==
[~2022-04-26] MED LIST changes: -LABE100T4 PO; +LABE100T6 PO
== END ==
LOC: M PLARAD 11:51
PROVIDERS: ATTEND Internal Medicine Medical Oncology
DX: C34.11 Malignant neoplasm of upper lobe, right bronchus or lung (principal)
CPT/HCPCS: 78815; A9552

== ENCOUNTER → 2022-05-05 | Outpatient (CLI) | payer MEDICARE, OTHER | LOC: M ONCR 09:27 | PROVIDERS: ATTEND General Practice | DX: C34.11 Malignant neoplasm of upper lobe, right bronchus or lung (principal); J91.0 Malignant pleural effusion; D46.9 Myelodysplastic syndrome, unspecified; D47.3 Essential (hemorrhagic) thrombocythemia; I25.2 Old myocardial infarction; J44.9 Chronic obstructive pulmonary disease, unspecified; Z79.82 Long term (current) use of aspirin; Z79.811 Long term (current) use of aromatase inhibitors; Z79.899 Other long term (current) drug therapy; Z87.891 Personal history of nicotine dependence; Z92.21 Personal history of antineoplastic chemotherapy; Z92.3 Personal history of irradiation ==

== ENCOUNTER → 2022-05-19 | Outpatient (RCR) | payer MEDICARE, OTHER | LOC: M ONCR 07:11 | PROVIDERS: ATTEND General Practice | DX: C34.11 Malignant neoplasm of upper lobe, right bronchus or lung (principal); C34.12 Malignant neoplasm of upper lobe, left bronchus or lung ==

== ENCOUNTER 2022-06-11 11:42 | Outpatient (RCR) | payer MEDICARE, OTHER ==
[2022-06-21] MEDS ORDERED: ERLO100T PO (08:59)
== END 2022-06-18 ==
LOC: M ONCR 11:42
PROVIDERS: ATTEND General Practice
DX: C34.12 Malignant neoplasm of upper lobe, left bronchus or lung (principal)

== ENCOUNTER → 2022-09-08 | Outpatient (CLI) | payer MEDICARE, OTHER | LOC: M ONCR 10:51 | PROVIDERS: ATTEND General Practice | DX: C34.11 Malignant neoplasm of upper lobe, right bronchus or lung (principal); C34.12 Malignant neoplasm of upper lobe, left bronchus or lung; I25.2 Old myocardial infarction; Z79.622 Long term (current) use of Janus kinase inhibitor; Z79.82 Long term (current) use of aspirin; Z79.899 Other long term (current) drug therapy; Z87.891 Personal history of nicotine dependence; Z92.3 Personal history of irradiation ==

== ENCOUNTER → 2022-12-07 | Outpatient (CLI) | payer MEDICARE, OTHER | LOC: M ONCR 10:16 | PROVIDERS: ATTEND General Practice | DX: C34.11 Malignant neoplasm of upper lobe, right bronchus or lung (principal); C34.12 Malignant neoplasm of upper lobe, left bronchus or lung; Z79.64 Long term (current) use of myelosuppressive agent; Z79.82 Long term (current) use of aspirin; Z79.899 Other long term (current) drug therapy; Z87.891 Personal history of nicotine dependence; Z92.3 Personal history of irradiation ==

== ENCOUNTER → 2023-11-30 | Outpatient (CLI) | payer MEDICARE, OTHER ==
[~2023-11-30] MED LIST changes: -ROSU20TA5; +ROSU20TA61
== END ==
LOC: M ONCR 13:23
PROVIDERS: ATTEND General Practice
DX: Z08 Encounter for follow-up examination after completed treatment for malignant neoplasm (principal); Z85.118 Personal history of other malignant neoplasm of bronchus and lung; Z71.2 Person consulting for explanation of examination or test findings; Z79.622 Long term (current) use of Janus kinase inhibitor; Z79.64 Long term (current) use of myelosuppressive agent; Z79.82 Long term (current) use of aspirin; Z79.899 Other long term (current) drug therapy; Z87.891 Personal history of nicotine dependence; Z92.3 Personal history of irradiation

== ENCOUNTER → 2024-04-16 | Outpatient (REF) | payer MEDICARE, OTHER | LOC: M SFHCDERM 17:53 | PROVIDERS: ATTEND Nurse Practitioner Family | DX: B07.9 Viral wart, unspecified (principal) ==

== ENCOUNTER → 2024-06-05 | Outpatient (CLI) | payer MEDICARE, OTHER ==
[~2024-06-05] MED LIST changes: -ROSU20TA61; +ROSU20TA86; +SERT50TA29 PO
== END ==
LOC: M ONCR 13:26
PROVIDERS: ATTEND General Practice
DX: C34.12 Malignant neoplasm of upper lobe, left bronchus or lung (principal); C34.11 Malignant neoplasm of upper lobe, right bronchus or lung; I25.2 Old myocardial infarction; Z79.82 Long term (current) use of aspirin; Z79.899 Other long term (current) drug therapy; Z87.891 Personal history of nicotine dependence; Z92.3 Personal history of irradiation

== ENCOUNTER → 2024-08-29 | Outpatient (CLI) | payer MEDICARE, OTHER | LOC: M ONCR 10:51 | PROVIDERS: ATTEND General Practice | DX: C34.11 Malignant neoplasm of upper lobe, right bronchus or lung (principal); C34.12 Malignant neoplasm of upper lobe, left bronchus or lung; Z92.3 Personal history of irradiation; Z87.891 Personal history of nicotine dependence; Z79.82 Long term (current) use of aspirin; Z79.899 Other long term (current) drug therapy ==

== ENCOUNTER → 2024-10-19 | Outpatient (RCR) | payer MEDICARE, OTHER | LOC: M ONCR 09-26 13:26 | PROVIDERS: ATTEND General Practice | DX: Z51.0 Encounter for antineoplastic radiation therapy (principal); C34.12 Malignant neoplasm of upper lobe, left bronchus or lung ==

== ENCOUNTER 2024-10-22 09:58 | Outpatient (RCR) | payer MEDICARE, OTHER | END 2024-11-16 | LOC: M ONCR 09:58 | PROVIDERS: ATTEND General Practice | DX: Z51.0 Encounter for antineoplastic radiation therapy (principal); C34.12 Malignant neoplasm of upper lobe, left bronchus or lung ==

== ENCOUNTER → 2025-01-18 | Outpatient (CLI) | payer MEDICARE, OTHER ==
[~2025-01-18] MED LIST changes: -HYDR500C PO; +HYDR500C20 PO
== END ==
LOC: M ONCR 11:15
PROVIDERS: ATTEND General Practice
DX: C34.11 Malignant neoplasm of upper lobe, right bronchus or lung (principal); C34.12 Malignant neoplasm of upper lobe, left bronchus or lung; Z92.3 Personal history of irradiation; Z92.29 Personal history of other drug therapy; Z87.891 Personal history of nicotine dependence; Z79.82 Long term (current) use of aspirin; Z79.899 Other long term (current) drug therapy